=== PATIENT | female | born 1945 | race Caucasian/White ===

== ENCOUNTER 2017-10-18 14:29 | Emergency (ER) | payer OTHER ==
[~2017-10-18] VITALS: Ht 162.6 cm; Wt 94.9 kg
[~2017-10-18 14:29] MED LIST: AGRYLIN0.5 MG PO; ANAGRELIDE HCL0.5 MG PO; CYCLOBENZAPRINE5 MG PO; ECONAZOLE NITRA15 GM TP; ENDOCET 5-3251 EACH PO; FLEXERIL10 MG PO; GLIPIZIDE10 MG PO; HUMULIN N100 UNIT/1 SQ; HYDREA500 MG PO; HYDROCHLOROTHIA50 MG PO; LIPITOR10 MG PO; LO-DOSE ASPIRIN81 M1 PO; LOPRESSOR25 MG PO; LORTAB 5-325 M1 EACH PO; LOVENOX40 MG/0.4 SC; LYRICA50 MG PO; METOPROLOL SUCC50 MG PO; MOTRIN600 MG PO; MOTRIN800 MG PO; NAPROSYN500 MG PO; NORCO 5/3251 TABLET PO; NOVOLIN N100 UNITS/ SC; NOVOLOG 10100 UNITS/ SC; OXYCODONE HCL5 MG PO; PLAVIX75 MG PO; PROTONIX40 MG PO; SERTRALINE HCL100 MG PO; SKELAXIN800 MG PO; THERAGRAN1 TABLET PO; TRAMADOL HCL50 MG PO; VITAMIN D35000 UNIT PO; ZESTRIL2.5 MG PO; ZOLOFT50 MG PO
[2017-10-18 17:05] LABS: CHLORIDE 102 mEq/L (99-109); POTASSIUM 3.4 mEq/L (3.7-5.4); SODIUM 140 mEq/L (136-147)
[2017-10-18 17:07] LABS: GLUCOSE 156 mg/dL (70-99)
[2017-10-18 17:10] LABS: HEMATOCRIT 33.8 % (36.0-46.0); MCH 36.7 PG (29.0-34.0); MCHC 32.5 G/DL (30.0-36.0); MCV 112.7 FL (83-99); PLATELET COUNT 426 K/uL (156-360); RBC DIS.WIDTH-CV 14.6 % (11.8-14.6); RBC DIS.WIDTH-SD 61.4 % (39-53); WHITE BLOOD COUNT 6.2 K/uL (4.1-10.2)
[2017-10-18 17:11] LABS: CREATININE 0.9 mg/dL (0.6-1.3); GFR ESTIMATE (CALCULATED) > 59 mL/min/
[2017-10-18 17:12] LABS: UREA NITROGEN (BUN) 18 mg/dL (9-23)
[2017-10-18] MEDS ORDERED: BACTRIM,SEPT1 TABLET PO (18:51)
[2017-10-18 19:02] VITALS: BP 132/56
== END 2017-10-18 19:02 | disposition home or self-care (01) ==
LOC: EME 14:29
PROVIDERS: Physician Assistant
DX: L03.116 Cellulitis of left lower limb (principal); L03.115 Cellulitis of right lower limb; Z86.718 Personal history of other venous thrombosis and embolism; Z79.02 Long term (current) use of antithrombotics/antiplatelets; E11.9 Type 2 diabetes mellitus without complications; I10 Essential (primary) hypertension; K21.9 Gastro-esophageal reflux disease without esophagitis; Z79.4 Long term (current) use of insulin; Z79.82 Long term (current) use of aspirin; Z88.8 Allergy status to other drugs, medicaments and biological substances
CPT/HCPCS: 80048; 83605; 85027; 93970; 99281; 99283

== ENCOUNTER 2017-11-17 00:44 | Emergency (ER) | payer OTHER ==
[~2017-11-17] VITALS: Ht 160 cm; Wt 94.7 kg
[~2017-11-17 00:44] MED LIST changes: +BACTRIM,SEPT1 TABLET PO
[2017-11-17] MEDS ORDERED: ZOFRAN ODT4 MG PO (01:16)
[2017-11-17] MEDS ORDERED: CLINDAMYCIN HC300 MG PO ×2 (01:16→01:17)
[2017-11-17 01:50] VITALS: BP 116/46
== END 2017-11-17 01:51 | disposition home or self-care (01) ==
LOC: EME → EDBD 00:44 → EME 01:51
DX: L03.116 Cellulitis of left lower limb (principal); E11.9 Type 2 diabetes mellitus without complications; I10 Essential (primary) hypertension; K21.9 Gastro-esophageal reflux disease without esophagitis; Z79.4 Long term (current) use of insulin; Z79.82 Long term (current) use of aspirin; Z88.8 Allergy status to other drugs, medicaments and biological substances
CPT/HCPCS: 99281; 99284

== ENCOUNTER 2018-05-13 21:08 | Inpatient (IN) | payer OTHER ==
[~2018-05-13] VITALS: Ht 157.5 cm; Wt 91.2 kg
[~2018-05-13 21:08] MED LIST changes: +CHOLESTYRAMINE L4 GM PO; +CLINDAMYCIN HC300 MG PO; +DITROPAN5 MG PO; +IMODIUM A-D2 M2 PO; +IRON325 M1 PO; +LACTOBACILLUS1 EACH PO; +ZOFRAN ODT4 MG PO; +ZOLOFT100 MG PO
[2018-05-14 07:56] VITALS: BP 146/68
[2018-05-14 14:58] VITALS: BP 146/67
[2018-05-14 19:42] VITALS: BP 114/58
[2018-05-15 00:02] VITALS: BP 114/57
[2018-05-15 03:49] VITALS: BP 120/57
[2018-05-15 06:37] LABS: CHLORIDE 105 MEQ/L (99-109); CREATININE 0.8 MG/DL (0.6-1.3); GFR ESTIMATE (CALCULATED) > 59 mL/min/; GLUCOSE 134 mg/dL (70-99); POTASSIUM 4.3 MEQ/L (3.7-5.4); SODIUM 139 MEQ/L (136-147); UREA NITROGEN (BUN) 15 mg/dL (9-23)
[2018-05-15 06:49] LABS: HEMATOCRIT 29.1 % (36.0-46.0); HEMOGLOBIN 9.7 G/DL (11.9-15.5); MCV 127.1 FL (83-99)
[2018-05-15 08:03] VITALS: BP 122/58
[2018-05-15] MEDS ORDERED: OXYCODONE HCL5 MG PO (09:26)
[2018-05-15 11:28] VITALS: BP 107/54
== END 2018-05-15 15:03 | disposition home or self-care (01) | DRG 483 ==
LOC: 2SOUTH → ENRESERV 21:08 → 2SOUTH 05-14 07:04 → ENRESERV 05-14 13:05 → 3EAST 05-14 14:25
PROVIDERS: Orthopaedic Surgery
PROC: 0RRJ00Z Replacement of Right Shoulder Joint with Reverse Ball and Socket Synthetic Substitute, Open Approach (ICD-10-PCS; principal; 2018-05-14)
PROC: 3E0T3BZ Introduction of Anesthetic Agent into Peripheral Nerves and Plexi, Percutaneous Approach (ICD-10-PCS; 2018-05-14)
DX: M75.121 Complete rotator cuff tear or rupture of right shoulder, not specified as traumatic (principal); M19.011 Primary osteoarthritis, right shoulder; I10 Essential (primary) hypertension; K21.9 Gastro-esophageal reflux disease without esophagitis; F32.9 Major depressive disorder, single episode, unspecified; E11.40 Type 2 diabetes mellitus with diabetic neuropathy, unspecified; J44.9 Chronic obstructive pulmonary disease, unspecified; E78.5 Hyperlipidemia, unspecified; Z79.02 Long term (current) use of antithrombotics/antiplatelets; Z79.82 Long term (current) use of aspirin; Z98.1 Arthrodesis status; Z88.2 Allergy status to sulfonamides; Z79.4 Long term (current) use of insulin; Z90.49 Acquired absence of other specified parts of digestive tract
CPT/HCPCS: 73020; 80048; 82948; 85014; 85018; 99281; 99284; C1713; G0378; J0330; J0690; J1100; J1170; J1815; J1885; J2405; J2795; J3010; J7030; J7050